=== PATIENT | female | born 1990 | race African-American/Black ===

== ENCOUNTER 2021-07-19 09:14 | Day surgery (SDC) | payer MEDICAID, SELFPAY ==
--- NOTE | ~2021-07-19 | FL_ITS ---
EXAMINATION: XR LUMBAR PUNCTURE CLINICAL INFORMATION: Pseudotumor cerebri. Headache and right eye symptoms. COMPARISON: None. TECHNIQUE/FINDINGS: Procedure and risks and benefits including bleeding, infection and headache were discussed with the patient and informed consent was obtained. The patient was positioned in the prone position. The back was prepped and draped in the usual sterile fashion. Skin and soft tissues anesthetized with 1% lidocaine plain. Using fluoroscopic guidance and a 22-gauge spinal needle, interlaminar access to the spinal canal at the L3-L4 level was obtained. 8 mL of clear CSF. Opening pressure was 17 cm of water. Closing pressure was 14 cm of water. FLUOROSCOPY TIME: 0.8 minutes DOSE AREA PRODUCT: 9.2 Gy-cm2. IMAGES: 4 saved fluoroscopic images. FL/FL guided lumbar puncture LP IMPRESSION: Fluoroscopy-guided lumbar puncture .
[2021-07-19 09:37] VITALS: BP 130/84; PULSE 68; RESP 18; TEMP 36.1; O2SAT 99; BMI 30.5
[2021-07-19 09:38] LABS: MANUAL DIFF FLAG NO
[2021-07-19 09:40] LABS: Basophils Percent Auto 0.4 % (0-2); Eosinophils Absolute Auto 0.1 X10*3/uL (0.0-0.4); Hematocrit 35.5 % (37.0-47.0); Hemoglobin 11.2 g/dl (12.0-16.0); Imm Gran Abs Auto 0.01 X10*3/uL (0.00-0.03); Imm Gran Pct Auto 0.2 % (0.0-0.4); Lymphocytes Absolute Auto 1.8 X10*3/uL (1.2-4.9); Lymphocytes Percent Auto 38.6 % (20-40); Mean Corpuscular HGB Conc 31.5 g/dl (31.0-35.0); Mean Corpuscular Hemoglobin 26.2 pg (27.0-33.0); Mean Corpuscular Volume 82.9 fL (80.0-98.0); Mean Platelet Volume 8.9 fL (9.4-12.3); Monocytes Absolute Auto 0.4 X10*3/uL (0.1-1.2); Monocytes Percent Auto 7.8 % (2-11); Neutrophils Absolute Auto 2.3 x10*3/uL (2.0-8.3); Platelet Count 284 X10*3/uL (160-400); Red Blood Count 4.28 X10*6/uL (4.20-5.50); Red Cell Distribution Width 13.9 % (11.0-16.0); White Blood Count 4.6 X10*3/uL (4.8-10.8)
[2021-07-19 09:52] LABS: INTERNATIONAL NORM RATIO 1.2 (0.9-1.1); Prothrombin Time 13.5 SEC (9.9-13.0)
[2021-07-19 09:52] LABS: UPreg QC Valid YES; Urine Pregnancy NEGATIVE (NEGATIVE)
[2021-07-19 09:55] LABS: Partial Thromboplastin Time 37.5 SEC (24.1-38.0)
[2021-07-19 12:51] VITALS: BP 114/71; PULSE 69; RESP 18; TEMP 36.1; O2SAT 100
[2021-07-19 14:00] LABS: CSF Appearance Clear, Colorless; CSF Tube # 1
[2021-07-19 14:18] LABS: Glucose CSF 66 mg/dL; Total Protein CSF 31.9 mg/dL (15-45)
[2021-07-19 14:45] LABS: Appearance CSF CLEAR; CSF Tube # 4; Color CSF COLORLESS; Lymphocytes CSF 100 %; Red Blood Cell CSF 1 MM*3; White Blood Cell CSF 1 MM*3
--- NOTE | 2021-07-19 15:05 | PC.NURSE ---
documented on bifold all pt care
[2021-07-20 07:39] LABS: Oligoclonal Serum Yes
[2021-07-29 15:41] LABS: Albumin 4.3 g/dL (3.5-5.2); Albumin, CSF 17.8 mg/dL (8.0-42.0); IgG 1090 mg/dL (600-1640); IgG Synthesis Rate -2.3 mg/24 h (-9.9-3.3); IgG, CSF 2.4 mg/dL (0.8-7.7)
[2021-07-30 06:53] LABS: Albumin, CSF 62.1; Alpha-1-Globulin,CSF 5.8; Prealbumin, CSF 5.5; Total Protein, CSF 37
[2021-07-30 06:54] LABS: Alpha-2-Globulin,CSF 5.9; Beta Globulin, CSF 12.7
== END 2021-07-19 15:05 | disposition home or self-care (01) ==
LOC: HO.SSS 09:15
PROVIDERS: Psychiatry & Neurology Neurology; Radiology Diagnostic Radiology; Visit Provider Radiology Diagnostic Radiology
PROC: 009U3ZZ Drainage of Spinal Canal, Percutaneous Approach (ICD-10-PCS; CPT 62270; principal; 2021-07-19 11:00)
DX: G93.2 Benign intracranial hypertension (principal); R51.9 Headache, unspecified; H47.20 Unspecified optic atrophy
CPT/HCPCS: 36415; 62328; 81025; 82042; 82945; 83916; 84157; 84166; 85025; 85610; 85730; 87015; 87070; 87205; 89051